=== PATIENT | male | born 1945 ===

== ENCOUNTER 2016-08-07 12:52 | Emergency (ER) | payer MEDICARE ==
--- NOTE | 2016-08-07 13:57 | C.PDOC ---
History Of Present Illness 71 y/o male presents to emergency department, brought in by ambulance, status post seizure, transient syncope, with post-ictal phase in front of a store. Patient presents with a contusion to the mid-forehead. Denies nausea, vomiting, dizziness, headache, neurological deficits. No other complaints at this time. Time Seen by Provider: 08/07/16 13:18 Chief Complaint (Nursing): Syncope History Per: Patient History/Exam Limitations: no limitations Onset/Duration Of Symptoms: Sudden Onset Seizure Or Post-ictal Symptoms: Generalized Seizure Activity, Post-ictal Period Fall Associated With With Symptoms: Yes Past Medical History Reviewed: Historical Data, Nursing Documentation, Vital Signs Vital Signs: Last Vital Signs Temp 98.2 F 08/07/16 13:05 Pulse 103 H 08/07/16 14:27 Resp 17 08/07/16 14:27 BP 128/80 08/07/16 14:27 Pulse Ox 93 L 08/07/16 15:00 - Medical History PMH: Seizures Family History: States: Unknown Family Hx - Social History Hx Alcohol Use: No Hx Substance Use: No Review Of Systems Except As Marked, All Systems Reviewed And Found Negative. Constitutional: Negative for: Fever, Chills Cardiovascular: Negative for: Chest Pain Respiratory: Negative for: Cough, Shortness of Breath Gastrointestinal: Negative for: Nausea, Vomiting Musculoskeletal: Negative for: Neck Pain Skin: Positive for: Other (contusion to mid forehead) Neurological: Positive for: Seizures. Negative for: Weakness, Numbness, Dizziness Physical Exam - Physical Exam Appears: Non-toxic, No Acute Distress, Other (awake, alert, oriented) Skin: Normal Color, Warm, Dry Head: Normacephalic, Other (small contusion, mid-forehead) Eye(s): bilateral: Normal Inspection, PERRL, EOMI Chest: Symmetrical Cardiovascular: Rhythm Regular Respiratory: Normal Breath Sounds, No Rales, No Rhonchi, No Wheezing Gastrointestinal/Abdominal: Soft, No Tenderness, No Guarding, No Rebound Back: Normal Inspection Extremity: Normal ROM, Capillary Refill (< 2 sec. ) Extremity: Bilateral: Normal Color And Temperature Neurological/Psych: Oriented x3, Normal Speech, Normal Cognition, Other (neuro intact, no focal deficits) ED Course And Treatment - Laboratory Results Result Diagrams: 08/07/16 14:28 04/07/17 14:28 Lab Interpretation: Normal ECG: Interpreted By Me ECG Rhythm: Sinus Tachycardia ECG Interpretation: Normal, Abnormal Rate From EC O2 Sat by Pulse Oximetry: 95 (RA) Pulse Ox Interpretation: Normal - Radiology CXR: Viewed By Me, Read By Radiologist CXR Interpretation: Yes: No Acute Disease - CT Scan/US CT Head Other Rad Studies (CT/US): Read By Radiologist, Radiology Report Reviewed CT/US Interpretation: IMPRESSION: No acute intracranial hemorrhage. Suspect minor chronic periventricular white matter ischemic changes. Reevaluation Time: 15:30 Reassessment Condition: Improved (A&O x 3, comfortable) - Physician Consult Information Outcome Of Conversation: 1515: d/w PMD Gibran Dwyer- ok to d/c home. confirms good Neuro f/u wtih Dr. Kapoor and usually szr Q month Medical Decision Making Medical Decision Making: typical seizure, frontal contusion but normal w/u ok to d/c home by PMD Disposition Doctor Will See Patient In The: Office Counseled Patient/Family Regarding: Studies Performed, Diagnosis - Disposition Disposition: HOME/ ROUTINE Disposition Time: 15:32 Condition: GOOD - Clinical Impression Clinical Impression: Seizure - Scribe Statement The provider has reviewed the documentation as recorded by the Ursula Nina Provider Attestation: All medical record entries made by the Ursula were at my direction and personally dictated by me. I have reviewed the chart and agree that the record accurately reflects my personal performance of the history, physical exam, medical decision making, and the department course for this patient. I have also personally directed, reviewed, and agree with the discharge instructions and disposition.
--- NOTE | 2016-08-07 14:16 | RAD ---
HISTORY: Seizure. 13:30. Technique: Single view portable semi erect @ COMPARISON: No prior. FINDINGS: LUNGS: No active pulmonary disease. PLEURA: No significant pleural effusion identified, no pneumothorax apparent. CARDIOVASCULAR: No radiographic findings to suggest acute or significant cardiovascular disease. OSSEOUS STRUCTURES: No significant abnormalities. VISUALIZED UPPER ABDOMEN: Normal. OTHER FINDINGS: None. IMPRESSION: No active disease.
[2016-08-07 14:29] VITALS: RESP 17
[2016-08-07 14:33] LABS: EOS # 0.2 K/uL (0.0-0.7); LYMPH # 1.5 K/uL (1.0-4.3); MONO # 0.5 K/uL (0.0-0.8); RED CELL DISTRIBUTION WIDTH 14.4 % (11.5-14.5)
--- NOTE | 2016-08-07 14:44 | CT ---
PROCEDURE: CT HEAD WITHOUT CONTRAST. HISTORY: szr/syncope, frontal contusion COMPARISON: None available. TECHNIQUE: Axial computed tomography images were obtained through the head/brain without intravenous contrast. Radiation dose: Total exam DLP = 854.14 mGy-cm. This CT exam was performed using one or more of the following dose reduction techniques: Automated exposure control, adjustment of the mA and/or kV according to patient size, and/or use of iterative reconstruction technique. FINDINGS: HEMORRHAGE: No acute parenchymal, subarachnoid or extra-axial hemorrhage. BRAIN: There may be some very minimal chronic periventricular white matter ischemic changes. Minor vascular calcifications are present. VENTRICLES: Mild volume loss somewhat more central based on slight the disproportion enlargement of the ventricles as compared sulci. CALVARIUM: There are no acute calvarial fractures. There may be some minor left supraorbital soft tissue swelling PARANASAL SINUSES: Paranasal sinuses are well-developed. No fluid levels seen to suggest acute sinusitis. Minor mucosal thickening within the ethmoid air complex. MASTOID AIR CELLS: Unremarkable as visualized. No inflammatory changes. OTHER FINDINGS: None. IMPRESSION: No acute intracranial hemorrhage. Suspect minor chronic periventricular white matter ischemic changes. Mild central volume loss.
[2016-08-07 14:53] LABS: BASO % 0.5 % (0.0-2.0); EOS % 1.9 % (0.0-4.0); HEMATOCRIT 42.4 % (35.0-51.0); LYMPH % 17.7 % (20.0-40.0); MEAN CELL VOLUME 75.6 fL (80.0-94.0); MEAN CORPUSCULAR HGB CONC 30.5 g/dL (33.0-37.0); MEAN PLATELET VOLUME 7.9 fL (7.2-11.7); WHITE BLOOD COUNT 8.5 K/uL (4.8-10.8)
[2016-08-07 14:59] LABS: CHLORIDE 100 mmol/L (98-107); POTASSIUM 4.6 mmol/L (3.6-5.2); SODIUM 137 mmol/L (132-148)
[2016-08-07 15:01] LABS: ALB/GLOB RATIO 1.8 (1.0-2.1); AST/SGOT 45 U/L (17-59); BILIRUBIN,TOTAL 0.6 mg/dL (0.2-1.3); CARBON DIOXIDE 20 mmol/L (22-30); CHOLESTEROL 98 mg/dL (0-199); GFR AFRICAN-AMERICAN > 60; TOTAL PROTEIN 7.3 g/dL (6.3-8.3)
[2016-08-07 15:02] LABS: ALKALINE PHOSPHATASE 72 U/L (38-126); ALT/SGPT 58 U/L (21-72); BLOOD UREA NITROGEN 14 mg/dL (9-20); CALCIUM 8.8 mg/dl (8.6-10.4); GLUCOSE,RANDOM 113 mg/dL (75-110)
[2016-08-07 15:46] VITALS: BP 126/77; PULSE 100; TEMP 98; O2SAT 97
--- NOTE | 2016-08-12 13:57 | CARD ---
APPROVED REPORT EKG Measurement Heart [id number] NM [id number] <Conclusion> Sinus tachycardia Cannot rule out Inferior infarct, age undetermined Abnormal ECG
== END 2016-08-07 15:46 | disposition home or self-care (01) ==
LOC: C.ER 12:52
DX: G40.909 Epilepsy, unspecified, not intractable, without status epilepticus (principal); S00.83XA Contusion of other part of head, initial encounter; W18.39XA Other fall on same level, initial encounter; Y92.414 Local residential or business street as the place of occurrence of the external cause

== ENCOUNTER 2017-10-27 06:18 | Day surgery (SDC) | payer MEDICARE ==
[2017-10-15 09:40] VITALS: BMI 26.5
[~2017-10-27 06:18] MED LIST: Ciprofloxacin 0.3% OPTH SOLN OS SCH; Flurbiprofen 0.03% Opht SOLN OS SCH; Lactated Ringer's 500 ML IV ONE; Phenylephrine 2.5% Opht Soln OS SCH; Tropicamide 1% Opht SOLUTION OS SCH; acetaZOLAMIDE 500 mg SR Cap PO ONE
[2017-10-27] MEDS ORDERED: Carbachol 0.01% IO ONE (07:19)
[2017-10-27] MEDS ORDERED: Povidone Iodine Ophthalmic 5% Soln ONE (07:19)
[2017-10-27] MEDS ORDERED: Tetracaine 0.5% Ophth (OR ONLY) ONE (07:19)
[2017-10-27] MEDS ORDERED: Chondroitin/Hyaluronate Opth Syringe KIT (0.55 ml-0.5 ml) IO ONE (07:20)
[2017-10-27] MEDS ORDERED: Hyaluronidase Human, Recombi 150 U/ML VIAL ONE (07:23)
[2017-10-27] MEDS ORDERED: Lidocaine 2% MPF (5 ml) Inj ONE (07:30)
[2017-10-27] MEDS ORDERED: Lactated Ringer's 1,000 ML IV ONE (07:35)
[2017-10-27] MEDS ORDERED: Midazolam 2 MG/2 ML VIAL ONE (09:31)
[2017-10-27] MEDS: Tobramycin/Dexamethasone OPHT OINT ONE ×2 (09:44→09:54)
[2017-10-27] MEDS ORDERED: acetaZOLAMIDE 500 mg SR Cap PO ONE (10:08)
[2017-10-27 11:31] VITALS: BP 121/71; PULSE 87; RESP 18; TEMP 97.7; O2SAT 100
--- NOTE | 2017-10-27 23:02 | OP ---
PROCEDURE DATE: 10/27/2017 PREOPERATIVE DIAGNOSIS: Cataract, left eye. POSTOPERATIVE DIAGNOSIS: Cataract, left eye. OPERATIVE PROCEDURE: Phacoemulsification, left eye, insertion of posterior chamber implant. SURGEON: Jose Miguel Vera MD CO-SURGEON: Mauricio Park MD ANESTHESIA TYPE: Local IV sedation. PROCEDURE: The patient was brought into the operating room, placed in supine position, prepped and draped in the usual fashion for ophthalmic surgery. Lid speculum was inserted, lids and exposing globe. A side-port incision was made superiorly and inferiorly with a disposable sharp blade. Anterior chamber was filled with Viscoat. A near clear corneal incision was made temporally with a 2.75-mm keratome. Capsulorrhexis was then performed with Utrata forceps. Hydrodissection carried out with balanced salt solution. Nucleus was phacoemulsified. Remaining cortical fragments were removed with a split irrigation and aspiration system. The capsular sac was filled with Provisc. A posterior chamber lens was then injected into the capsular sac and rotated into horizontal position. Provisc was aspirated out of the anterior chamber. The pupil was constricted with Miochol. The wound was found to be watertight. Topical Betadine, Timoptic, and TobraDex ointment and pressure patch were applied. The patient tolerated the procedure well. Jose Miguel Vera MD
== END 2017-10-27 11:30 | disposition home or self-care (01) ==
LOC: C.SDS 06:18
PROVIDERS: ATTEND Ophthalmology
DX: H25.12 Age-related nuclear cataract, left eye (principal)
CPT/HCPCS: 66984; 82948; J2250; J3010; J3470; J7120; V2632

== ENCOUNTER 2017-11-10 07:35 | Day surgery (SDC) | payer MEDICARE ==
[2017-10-15 09:40] VITALS: BMI 26.5
[~2017-11-10 07:35] MED LIST changes: +Ciprofloxacin 0.3% OPTH SOLN OD SCH; -Ciprofloxacin 0.3% OPTH SOLN OS SCH; +Flurbiprofen 0.03% Opht SOLN OD SCH; -Flurbiprofen 0.03% Opht SOLN OS SCH; +Lidocaine 2% MPF (5 ml) Inj ONE; +Phenylephrine 2.5% Opht Soln OD SCH; -Phenylephrine 2.5% Opht Soln OS SCH; +Tropicamide 1% Opht SOLUTION OD SCH; -Tropicamide 1% Opht SOLUTION OS SCH
[2017-11-10] MEDS ORDERED: Chondroitin/Hyaluronate Opth Syringe KIT (0.55 ml-0.5 ml) IO ONE (07:44)
[2017-11-10] MEDS ORDERED: Tetracaine 0.5% Ophth (OR ONLY) ONE (07:44)
[2017-11-10] MEDS ORDERED: Povidone Iodine Ophthalmic 5% Soln ONE (07:44)
[2017-11-10] MEDS ORDERED: Hyaluronidase Human, Recombi 150 U/ML VIAL ONE (07:49)
[2017-11-10] MEDS ORDERED: Lactated Ringer's 1,000 ML IV ONE (08:30)
[2017-11-10] MEDS ORDERED: Ciprofloxacin 0.3% OPTH SOLN OD SCH (09:00)
[2017-11-10] MEDS ORDERED: Midazolam 2 MG/2 ML VIAL ONE (12:14)
[2017-11-10] MEDS: Carbachol 0.01% IO ONE ×2 (12:48→12:55)
[2017-11-10] MEDS: Tobramycin/Dexamethasone OPHT OINT ONE ×2 (12:49→13:01)
[2017-11-10] MEDS ORDERED: acetaZOLAMIDE 500 mg SR Cap PO ONE (13:20)
[2017-11-10 13:21] VITALS: O2SAT 100
[2017-11-10 14:00] VITALS: BP 140/59; PULSE 79; RESP 20; TEMP 97.8
--- NOTE | 2017-11-11 00:31 | OP ---
PROCEDURE DATE: 11/10/2017 PREOPERATIVE DIAGNOSIS: Matured cataract, right eye. POSTOPERATIVE DIAGNOSIS: Matured cataract, right eye. OPERATIVE PROCEDURE: Phacoemulsification, right eye, insertion of posterior chamber lens implant. SURGEON: Jose Miguel Vera MD CO-SURGEON: Mauricio Park MD ANESTHESIA TYPE: Local IV sedation. PROCEDURE: The patient was brought into the operating room, placed in supine position, prepped and draped in the usual fashion for ophthalmic surgery. Lid speculum was inserted, lids and exposing globe. A side-port incision was made superiorly and inferiorly with a disposable sharp blade. Anterior chamber was filled with Viscoat. A near clear corneal incision was made temporally with a 2.75-mm keratome. Capsulorrhexis was then performed with Utrata forceps. Hydrodissection carried out with balanced salt solution. Nucleus was phacoemulsified. Remaining cortical fragments were removed with a split irrigation and aspiration system. The capsular sac was filled with Provisc. A posterior chamber lens was then injected into the capsular sac and rotated into horizontal position. Provisc was aspirated out of the anterior chamber. The pupil was constricted with Miochol. The wound was found to be watertight. Topical Betadine, Timoptic, and TobraDex ointment and pressure patch were applied. The patient tolerated the procedure well. Jose Miguel Vera MD
== END 2017-11-10 14:00 | disposition home or self-care (01) ==
LOC: C.SDS 07:35
PROVIDERS: ATTEND Ophthalmology
DX: H25.11 Age-related nuclear cataract, right eye (principal)
CPT/HCPCS: 66984; 82948; J2250; J3010; J3470; J7120; V2632